=== PATIENT | female | born 1950 | race Caucasian/White ===

== ENCOUNTER → 2016-07-29 | Outpatient (CLI) | payer MEDICARE, BC ==
[~2016-07-29] MED LIST: ANTIVERT 25MG25 MG PO; COLACE 100100 MG/CAP PO; FLONASE NASAL S16 GM NS; LEVAQUIN 750MG750 M1 PO; MIRALAX PA17 GM/Dose PO; MOTRIN IB200 MG PO; NASAL SALINE 4444 ML IRP; NORCO 325 MG-51 TAB PO; PERCOCET 325 MG1 TA2 PO; TYLENOL 325MG325 MG PO; ZOFRAN 4MG T4 MG/TAB PO; ZOFRAN ODT8 MG PO
== END ==
LOC: MC.RAD 08:30
DX: N63 Unspecified lump in breast (principal)

== ENCOUNTER → 2017-03-10 | Outpatient (CLI) | payer MEDICARE, BC | LOC: MC.RAD 08:30 | DX: N63.13 Unspecified lump in the right breast, lower outer quadrant (principal) ==

== ENCOUNTER → 2017-03-18 | Outpatient (CLI) | payer MEDICARE, BC | LOC: MC.RAD 08:00 | DX: N63.10 Unspecified lump in the right breast, unspecified quadrant (principal) ==

== ENCOUNTER → 2018-08-21 | Outpatient (CLI) | payer MEDICARE, OTHER | LOC: MC.RAD 10:45 | DX: Z12.31 Encounter for screening mammogram for malignant neoplasm of breast (principal) ==

== ENCOUNTER → 2023-05-01 | Outpatient (CLI) | payer MEDICARE | LOC: MC.RAD 10:30 | DX: Z12.31 Encounter for screening mammogram for malignant neoplasm of breast (principal); N63.11 Unspecified lump in the right breast, upper outer quadrant ==

== ENCOUNTER → 2023-05-15 | Outpatient (CLI) | payer MEDICARE | LOC: MC.RAD 10:50 | DX: N60.01 Solitary cyst of right breast (principal) ==